=== PATIENT | female | born 1990 | race Caucasian/White ===

== ENCOUNTER 2025-09-05 21:10 | Emergency (ER) | payer OTHER, SELFPAY ==
--- NOTE | ~2025-09-05 | XR_ITS ---
XR wrist RT min 3V INDICATION: pain s/p crush injury x 2 days ago . COMPARISON: None. FINDINGS: Frontal, lateral and oblique views of the right wrist were obtained. No acute fracture is seen. IMPRESSION: No acute fracture or dislocation. Reviewed, dictated and finalized at location S. [employer]LOGIC TECH
[2025-09-05 21:19] VITALS: BP 142/92; PULSE 92; RESP 18; TEMP 36.8; O2SAT 100
--- NOTE | 2025-09-05 22:04 | ED.UPPEXIN ---
HPI - Extremity Injury (Upper) General Chief Complaint: Extremity Injury, Upper Stated Complaint: Dropped an Air conditioner on right wrist Time Seen by Provider: 09/05/25 21:15 History of Present Illness HPI narrative: Patient is a 35-year-old female who presents to the ER with a right wrist injury. She reports she was helping to carry an air conditioning unit through the snow when she tripped over a rock and the air-conditioner landed on her wrist. Patient reports the injury happened approximately 2 days ago. Patient denies any snuffbox tenderness, excessive swelling, and denies decreased range of motion. She endorses previous ?hairline fractures to her wrist in the past but denies any other pertinent medical history. Related Data Allergies Allergy/AdvReac Type Severity Reaction Status Date / Time No Known Allergies Allergy Verified 09/05/25 21:12 Review of Systems Review of Systems: All systems reviewed & are unremarkable except as noted in HPI and below Exam Narrative: GENERAL: Well appearing, obese, non-toxic, in no acute distress. HEAD: Normocephalic, atraumatic. NECK: Supple. No adenopathy, no masses. RESPIRATORY: Airway patent, respirations nonlabored. Clear to auscultation bilaterally, no rales, rhonchi, wheezing. CARDIOVASCULAR: Regular rate and rhythm without murmurs, rubs, or gallops. Peripheral pulses 2+ and equal bilaterally. ABDOMINAL: Soft, nontender, nondistended, no hepatosplenomegaly. Normoactive BS. MUSCULOSKELETAL: Moves all extremities. Strength/ROM intact without gross deformities. SKIN: Warm, dry, normal color. No rashes. + hematoma to dorsal wrist, + ROM and + pulses NEURO: A&O X3. Speech clear. Cranial nerves II-XII intact. No ataxic movements. PSYCHIATRIC: Appropriate mood and affect. Normal interaction. Course Vital Signs Vital signs: Vital Signs Temperature 36.8 C 09/05/25 21:19 Pulse Rate 92 09/05/25 21:19 Respiratory Rate 18 09/05/25 21:19 Blood Pressure 142/92 H 09/05/25 21:19 Pulse Oximetry 100 09/05/25 21:19 Oxygen Delivery Room Air 09/05/25 21:19 Temperature 36.8 C 09/05/25 21:19 Pulse Rate 92 09/05/25 21:19 Respiratory Rate 18 09/05/25 21:19 Blood Pressure 142/92 H 09/05/25 21:19 Pulse Oximetry 100 09/05/25 21:19 Oxygen Delivery Room Air 09/05/25 21:19 MDM MDM Narrative Medical decision making narrative: Patient is a 35-year-old female who presents to the ER with a right wrist injury. She reports she was helping to carry and air conditioning unit through the snow when she tripped over a rock and the air-conditioner landed on her wrist. Patient reports the injury happened approximately 2 days ago. Patient denies any snuffbox tenderness, excessive swelling, and denies decreased range of motion. She endorses previous ?hairline fractures to her wrist in the past but denies any other pertinent medical history. Imaging Ordered: Right wrist x-ray Medications Ordered: Toradol 60 mg IM Results: Pt's x-ray indicates frontal, lateral and oblique views of the right wrist were obtained. No acute fracture is seen. Diagnosis: Right wrist hematoma, R wrist sprain Consults: orthopedic surgery Patient Education/Shared MDM: Results of lab work and imaging shared with patient. She will be placed in an OCL for comfort and support. Patient strongly advised to follow-up with orthopedic surgery if her pain has not improved in five days. She will not be discharged home with any new prescriptions . Strict return precautions provided. Patient verbalized understanding and is in agreement with plan. Vital signs stable at time of discharge. All questions answered. Differential Diagnosis Differential Diagnosis: Right wrist fracture, right wrist sprain, right wrist hematoma Imaging Data Attestation: I personally reviewed and interpreted this imaging study as follows: Radiologist's impression: ITS Impressions Wrist X-Ray 09/05/25 21:45 IMPRESSION: No acute fracture or dislocation. Discharge Plan Discharge Clinical Impression: Sprain and strain of wrist, Hematoma of right wrist Patient Disposition: Home Condition: Stable Instructions: Antibiotic Form, Splint Care (ED) Additional Instructions: Please return to the ER with any worsening symptoms. Follow-up with Orthopedic surgery in 5 days if your symptoms have not improved. Take all medications as prescribed, including regularly scheduled medications. You may take Tylenol and/or ibuprofen for pain control at home. Patient Language: Frisian Follow-up/Referrals: PHYSICIAN,[facility] [Primary Care Provider, Internal Medicine] Giancarlo Cruz MD [Physician, Orthopedics] Time of Disposition: 22:35
[2025-09-05] MEDS: KETOROLAC (*BKC) 60 MG/2 ML VIAL IM (22:15)
== END 2025-09-05 22:43 | disposition home or self-care (01) ==
PROVIDERS: Emergency Provider Registered Nurse
DX: S63.501A Unspecified sprain of right wrist, initial encounter (principal); S60.211A Contusion of right wrist, initial encounter; W22.8XXA Striking against or struck by other objects, initial encounter
CPT/HCPCS: 29125; 73110; 96372; 99283; J1885